=== PATIENT | male | born 1975 | race Caucasian/White ===

== ENCOUNTER 2024-05-30 10:08 | Outpatient (REF) | payer MEDICAID, SELFPAY ==
--- NOTE | 2024-05-30 07:45 | SKI_PTH ---
PATIENT: Beltran Gregorio LOC: [facility] U#:[id number] AGE/SX: 48/M ROOM: RE05/30/[address]: Nate Hoffman MD : 1975 BED: DIS: 05/30/2024 SPEC #: [id number] RECD: 05/30/24 12:08 STATUS: RAZA REQ #: [id number] LUZ MARIA: 05/30/24 07:[address]: Nate Hoffman DEPT: Surgical Specimen RECD BY: Zara Kaiser ENTERED: 05/30/24 12:08 SP TYPE: NII MERINO DR: Unknown,Unknown Tissues: 1 - SKIN BIOPSY(SHAVE/PUNCH) Procedures: SKIN LEVEL 4 Comments: [id number]
== END 2024-05-30 10:09 | disposition home or self-care (01) ==
LOC: LBN 10:08
PROVIDERS: Visit Provider Otolaryngology
DX: C44.1122 Basal cell carcinoma of skin of right lower eyelid, including canthus (principal)
CPT/HCPCS: 88305

== ENCOUNTER 2024-08-01 09:09 | Outpatient (REF) | payer MEDICAID, SELFPAY ==
--- NOTE | 2024-08-01 07:38 | SKI_PTH ---
PATIENT: Beltran Gregorio LOC: [facility] U#:[id number] AGE/SX: 48/M ROOM: RE08/01/[address]: Nate Hoffman MD : 1975 BED: DIS: 08/01/2024 SPEC #: [id number] RECD: 08/01/24 12:43 STATUS: RAZA REQ #: [id number] LUZ MARIA: 08/01/24 07:[address]: Nate Hoffman DEPT: Surgical Specimen RECD BY: Zara Kaiser ENTERED: 08/01/24 12:43 SP TYPE: NII MERINO DR: Unknown,Unknown Tissues: 1 - SKIN BIOPSY(SHAVE/PUNCH) Procedures: SKIN LEVEL 4 Comments: [id number]
== END 2024-08-01 09:10 | disposition home or self-care (01) ==
LOC: LBN 09:09
PROVIDERS: Visit Provider Otolaryngology
DX: L82.1 Other seborrheic keratosis (principal); L98.9 Disorder of the skin and subcutaneous tissue, unspecified
CPT/HCPCS: 88305

== ENCOUNTER 2025-02-19 10:01 | Outpatient (REF) | payer MEDICAID, SELFPAY ==
[2025-02-19 16:29] LABS: Cholesterol 239 mg/dL (<200); Glucose 91 mg/dL (74-106); HDL Cholesterol 51 mg/dL (>40)
== END 2025-02-19 10:02 | disposition home or self-care (01) ==
LOC: NCHCN 10:01
PROVIDERS: PCP Family Medicine; Visit Provider Family Medicine
DX: Z00.00 Encounter for general adult medical examination without abnormal findings (principal)
CPT/HCPCS: 80061; 82947